=== PATIENT | male | born 1965 | race Caucasian/White ===

== ENCOUNTER 2019-01-27 15:28 | Emergency (ER) | payer BC, MEDICAID ==
[~2019-01-27] VITALS: Ht 165.1 cm; Wt 65.0 kg
[~2019-01-27 15:28] MED LIST: CRESTOR; INSULIN; RISPERDAL
[2019-01-27] MEDS ORDERED: SODIUM CHLORIDE 0.9% 1,000 ML IV ONE (18:00)
[2019-01-27] MEDS ORDERED: FLUORESCEIN SODIUM 1MG/STRIP LEFTEYE ONE (19:00)
[2019-01-27 19:30] VITALS: BP 163/91
== END 2019-01-27 19:34 | disposition home or self-care (01) ==
LOC: ER 15:28
DX: S05.02XA Injury of conjunctiva and corneal abrasion without foreign body, left eye, initial encounter (principal); X58.XXXA Exposure to other specified factors, initial encounter; Y93.89 Activity, other specified; Y92.9 Unspecified place or not applicable; E11.9 Type 2 diabetes mellitus without complications; I10 Essential (primary) hypertension; E78.00 Pure hypercholesterolemia, unspecified; F17.200 Nicotine dependence, unspecified, uncomplicated
CPT/HCPCS: 99283; J7030